=== PATIENT | male | born 1955 | race Caucasian/White ===

== ENCOUNTER 2017-01-04 09:40 | Emergency (ER) | payer MEDICAID | END 2017-01-04 10:50 | disposition home or self-care (01) | LOC: D.ER 09:40 | DX: T78.1XXA Other adverse food reactions, not elsewhere classified, initial encounter (principal); X58.XXXA Exposure to other specified factors, initial encounter; L50.9 Urticaria, unspecified ==

== ENCOUNTER → 2018-09-09 14:36 | Outpatient (CLI) | payer MEDICAID | END | disposition home or self-care (01) | LOC: D.US 14:36 | PROVIDERS: ATTEND Family Medicine | DX: E04.9 Nontoxic goiter, unspecified (principal) ==

== ENCOUNTER → 2018-09-16 09:08 | Outpatient (CLI) | payer MEDICAID | END | disposition home or self-care (01) | LOC: D.US 09:08 | PROVIDERS: ATTEND Family Medicine | DX: E04.2 Nontoxic multinodular goiter (principal) ==